=== PATIENT | female | born 1945 | race Caucasian/White ===

== ENCOUNTER → 2017-01-08 | Outpatient (CLI) | payer OTHER ==
[~2017-01-08] MED LIST: AMARYL1 MG PO; AMLODIPINE BESYL5 MG PO; ASPIRIN81 M2 PO; ATORVASTATIN CA40 MG PO; BAYER ASPIRIN325 M1 PO; CERTAGEN PO; CHOLESTEROL MED; COZAAR100 MG PO; DOLOBID500 MG PO; GLIMEPIRIDE1 M1 PO; JANUVIA PO; METFORMIN PO; PANTOPRAZOLE SO40 MG PO; PRAVASTATIN SOD40 MG PO; PREVACID 24HR15 MG PO; SKELAXIN PO; SPIRIVA18 MCG INH; SPIRIVA18 MCG PO; SYMBICORT INH; TUDORZA PRESS400 MCG IN; [UNRECOGNIZED DRUG - OTHER] IH
--- NOTE | ~2017-01-08 | BD1 ---
[facility] A Service of [facility] & [facility] RADIOLOGY TEXT RESULTS PATIENT: ROXANNE TYLER LOCATION: [facility] : [birth year] UNIT #: [id number] AGE: [address]: Narcisa Collins MD SEX: F ORDER DR: [id number] [facility] [address] [place], [place] [address] [id number] O MR#: [id number] Acc #: [id number] NAME: ROXANNE TYLER : 1945 SEX: F STUDY DATE/TIME: 01/08/2017 15:03 UNIT: [facility] ROOM: STUDY DESCRIPTION: BD Dexa Bone Dens 1+ Site Attending Physician: Narcisa Collins M.D. Referring Physician: Narcisa Collins M.D. Ordering Physician: Narcisa Collins M.D. Primary Care Physician: Narcisa Collins M.D. MEDICAL IMAGING REPORT This report is preliminary unless electronic signature is present EXAM DEXA scan 01/08/2017 HISTORY Status post menopause with no hormone replacement therapy. Osteopenia. Arthritis and diabetes. Hypertension with blood pressure medication for 10 years. Smoking history for 20 years. FINDINGS Bone mineral density in the lumbar spine from L1 through L4 is 0.997 g/cm2 which is 0.5 standard deviations below the mean when compared to the young adult reference population which is within the range of normal. This is 1.7 standard deviations above the mean when compared to the age-matched population. Compared with 12/20/2014 there has been an increase in bone mineral density in the lumbar spine of 7.7%. Bone mineral density in the left femoral neck was 0.669 g/cm2 which is 1.6 standard deviations below the mean when compared to the young adult reference population which is characteristic of osteopenia. This is 0.2 standard deviations above the mean when compared to the age-matched population. Compared with 12/20/2014 there has been a decrease in bone mineral density in the left hip of 5.4%. IMPRESSION Bone mineral density in the lumbar spine within the range of normal and within the left hip characteristic of osteopenia. Compared with 12/20/2014, there has been an increase in bone mineral density in the lumbar spine and a decrease in bone mineral density in the left hip. Dictated by... Sami Miller M.D. THIS IS AN ELECTRONICALLY VERIFIED REPORT Sami Miller M.D. at 01/09/2017 10:18 AM [facility] A Service of [facility] RADIOLOGY TEXT RESULTS PATIENT: ROXANNE TYLER [facility] [id number] : [birth year] UNIT #: [id number] AGE: [address]: Narcisa Collins MD SEX: F ORDER DR: JUAN/zhao TD: 01/08/2017 17:46 JOB #: [id number] MEDICAL IMAGING REPORT Page 1 of 1 COPY
--- NOTE | ~2017-01-08 | MY25 ---
[facility] A Service of [facility] & [facility] RADIOLOGY TEXT RESULTS PATIENT: ROXANNE TYLER LOCATION: [facility] : [birth year] UNIT #: [id number] AGE: [address]: Narcisa Collins MD SEX: F ORDER DR: [id number] [facility] [address] [place], [place] [address] [id number] O MR#: [id number] Acc #: [id number] NAME: ROXANNE TYLER. : 1945 SEX: F STUDY DATE/TIME: 01/08/2017 14:56 UNIT: [facility] ROOM: STUDY DESCRIPTION: ANÍBAL MCDOWELL W/ CAD UNI RT Attending Physician: Narcisa Collins M.D. Referring Physician: Narcisa Collins M.D. Ordering Physician: Narcisa Collins M.D. Primary Care Physician: Narcisa Collins M.D. MEDICAL IMAGING REPORT This report is preliminary unless electronic signature is present EXAM Unilateral right digital diagnostic mammogram and targeted right breast ultrasound 01/08/2017 INDICATIONS 71-year-old female with a palpable lump in the right upper inner breast/chest wall for the past month. Pain with palpation. No surgeries, history of breast cancer or family history of breast cancer. TECHNIQUE CC, MLO and true lateral views of the right breast were obtained reviewed with an approved CAD device COMPARISON 02/05/2016, 12/20/2014, 12/06/2013. FINDINGS A marker overlies the area of palpable concern, superimposed over the pectoralis muscle on the MLO projection. Deep to the marker, no suspicious finding is present. Breast parenchyma is composed of scattered fibroglandular densities and unchanged. No new dominant nodule, mass or suspicious clustered microcalcifications. 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 Targeted ultrasound was thereafter performed. ULTRASOUND RIGHT BREAST: The patient is initially scanned independently by the technologist then rescanned in my presence. Limited physical exam (with patient consent) was performed by myself here in the department and at the area of palpable concern, the patient appears to be palpating the costochondral junction and has pain with palpation. Ultrasound evaluation of this area, however, demonstrates no cystic or solid nodule or other STS. [facility] A Service of [facility] & [facility] RADIOLOGY TEXT RESULTS PATIENT: ROXANNE TYLER LOCATION: [facility] : 47 UNIT #: [id number] AGE: [address]: Narcisa Collins MD SEX: F ORDER DR: suspicious finding. Imaging findings between mammography and ultrasound are concordant. Absent new or worsening symptoms in either breast, return to an annual screening regimen is recommended. Findings and recommendations were discussed with the patient here in the department. She voiced understanding and agreement. IMPRESSION 1. Benign unilateral right diagnostic mammogram and targeted right breast ultrasound. Clinical consideration is to determine additional imaging at this time. See discussion above. Return annual screening is recommended. BIRADS: 2 Benign Finding. Patients over the age of 40 are entered into a reminder system with target due date for the next mammogram. A result letter will also be sent to the patient. Dictated by... Nav Howard M.D. THIS IS AN ELECTRONICALLY VERIFIED REPORT Nav Howard M.D. at 01/08/2017 5:12 PM Christiano TD: 01/08/2017 17:06 JOB #: [id number] MEDICAL IMAGING REPORT Page 1 of 1 COPY
--- NOTE | ~2017-01-08 | US24 ---
[facility] A Service of [facility] & [facility] RADIOLOGY TEXT RESULTS PATIENT: ROXANNE TYLER LOCATION: [facility] : 47 UNIT #: [id number] AGE: [address]: Narcisa Collins MD SEX: F ORDER DR: [id number] [facility] [address] [place], [place] [address] [id number] O MR#: [id number] Acc #: [id number] NAME: ROXANNE TYLER : 1945 SEX: F STUDY DATE/TIME: 01/08/2017 15:04 UNIT: [facility] ROOM: STUDY DESCRIPTION: US Breast Unilateral Attending Physician: Narcisa Collins M.D. Referring Physician: Narcisa Collins M.D. Ordering Physician: Narcisa Collins M.D. Primary Care Physician: Narcisa Collins M.D. MEDICAL IMAGING REPORT This report is preliminary unless electronic signature is present EXAM Targeted ultrasound right breast 01/08/2017 HISTORY Refer below. FINDINGS Please refer to the mammogram report on the same date for complete details. Dictated by... Nav Howard M.D. THIS IS AN ELECTRONICALLY VERIFIED REPORT Nav Howard M.D. at 01/08/2017 5:18 PM SAVANNA/eliud TD: 01/08/2017 17:11 JOB #: [id number] MEDICAL IMAGING REPORT Page 1 of 1 COPY
== END | disposition home or self-care (01) ==
LOC: CMAM 14:30
DX: N63 Unspecified lump in breast (principal); M89.9 Disorder of bone, unspecified; Z78.0 Asymptomatic menopausal state; M85.88 Other specified disorders of bone density and structure, other site
CPT/HCPCS: 76641; 77080; G0206